=== PATIENT | female | born 1985 | race Caucasian/White ===

== ENCOUNTER 2022-01-21 07:47 | Inpatient (IN) ==
[2022-01-21] MEDS: LACTATED RINGER'S 1,000 ML IV PRN ×2 (07:48→08:50)
[2022-01-21] MEDS ORDERED: OXYTOCIN 30 UNITS/500 ML BAG IV PRN ×2 (07:51→09:59)
--- NOTE | 2022-01-21 07:55 | History & Physical Report ---
Date of Service January 21, 2022 Assessment & Plan (1) Active labor at term: Plan: admit, iv. labs. fhts categ 1. History of Present Illness Chief Complaint: contractions Primary Care Provider: Roni Whitehead, DO 36yo at 39wks ega with active labor. She called while in car with contractions that began a little before 6am this morning with history of precipitous labor with first. Delivered that baby in the care. No rom, no vb. +FM. PNC c/b 1. ama 2. h/o traumatic brain injury PNL rh pos, ri, gbs neg OBH: precip GYNH: nl paps Allergies Allergy/AdvReac Type Severity Reaction Status Date / Time No Known Allergies Allergy Verified 01/14/22 13:15 Home Medications Medication Instructions Recorded Confirmed Type prenat.vits,spencer,dfe-lprf-lrbxk 1 tab PO DAILY 06/11/21 01/14/22 History diphenhydramine HCl 25 mg tablet 25 mg PO TID PRN 01/14/22 01/14/22 History (Benadryl Allergy) Patient History Medical History (Updated 01/21/22 @ 07:55 by Myesha Rodriguez MD, FACOG) History of chicken pox Surgical History (Updated 06/11/21 @ 11:16 by Selina Spears) No history of previous surgery Family History (Updated 06/11/21 @ 11:00 by Selina Spears) Father Hypercholesteremia Denies family history of Ovarian cancer Breast cancer Colorectal cancer Social History (Updated 06/11/21 @ 11:01 by Selina Spears) Smoking Status: Never smoker Hx Alcohol Use: No marital status: marital status details: Lele Henry(33) [phone] Current Living Situation: Spouse and Family Current Living Situation Comment: lives with spouse, daughter, outside cat current occupational status: unemployed current occupation: homemaker Review of Systems as per Subjective / HPI Physical Exam Constitutional: WD/WN, vitals as above Respiratory: normal respiratory effort, lungs clear to auscultation Cardiovascular: Rate/Rhythm: regular rate and regular rhythm Gastrointestinal (Abdomen): soft gravid nt Musculoskeletal: [] edema nontender calves Neurologic: grossly normal Psychiatric: A+Ox3, euthymic affect Genitourinary: Manual OB Exam: + cervical dilation (7-8), + cervical effacement 100% and + station 0 OB Exam Monitor Tracing: + external FHT monitor used, + external uterine monitor used (not enough tracing to evaluate), + category I and + normal FHT variability Results & Data ([facility]) Vital Signs (Past 12 Hours) Vital Signs BP 01/21/22 07:51 111/76 Coding Level of Care Code None Diagnoses Active labor at term
[2022-01-21 08:29] LABS: Hematocrit (blood only) 38.3 % (37-47); Mean Corpuscular Hemoglobin 31.6 pg (25-34); Mean Corpuscular Hgb Conc 33.9 g/dL (32-36); Mean Platelet Volume 11.3 fL (7.4-10.4); Platelet Count 204 K/uL (130-400); RDW Standard Deviation 44.3 fL (36.4-46.3); Red Blood Count 4.12 M/uL (4.2-5.4); White Blood Count 7.44 K/uL (4.8-10.8)
[2022-01-21] MEDS ORDERED: fentaNYL citrate 100 MCG/2 ML VIAL ONE (08:48)
[2022-01-21] MEDS ORDERED: SODIUM CHLORIDE 0.9% INJ 10 ML VIAL ONE (08:48)
[2022-01-21] MEDS ORDERED: BUPIVACAINE 0.25% 30 ML VIAL ONE (08:48)
[2022-01-21] MEDS ORDERED: ePHEDrine sulfate 50 MG/ML AMP ONE (08:48)
[2022-01-21] MEDS ORDERED: fentaNYL 2MCG/ML ROPIVACAINE 1.25MG/ML 100 ML BAG EPI ONE (08:49)
[2022-01-21] MEDS ORDERED: LIDOCAINE 1% LOCAL 20 ML VIAL ONE (09:14)
--- NOTE | 2022-01-21 09:29 | Delivery Summary ---
Vaginal Delivery Summary Date of Service January 21, 2022 Vaginal Delivery Summary (periclitoral laceration) PREOPERATIVE DIAGNOSIS: 1. Single intrauterine at 39 weeks gestation 2. Labor 3. Advanced maternal age POSTOPERATIVE DIAGNOSIS: 1. Single intrauterine at 39 weeks gestation 2. Labor 3. Advanced maternal age 4. Delivered PROCEDURE: 1. Normal spontaneous vaginal delivery. SURGEON: Katherine Camacho MD ANESTHESIA: Local anesthesia ESTIMATED BLOOD LOSS: 300 mL FLUIDS: Continuous LR. URINE OUTPUT: None. COMPLICATIONS: None. CONDITION: Stable. INDICATIONS: 36 y/o at 39 wga presents with contractions beginning at 6am. Of note, she has history of precipitous labor and delivery in car with G1. On arrival to L&D she was found to be 7-8cm with bulging bag. Epidural was attempted however she felt desire to push prior to placement so she was re- checked and found to be 10cm. She underwent AROM and desired to push. FINDINGS: A viable female , weight pending with Apgars of 8 and 9 at 1 and 5 minutes respectively. SPECIMEN: Cord blood OPERATIVE REPORT: The patient progressed to 10 cm, 100% effaced and +2 station, pushed over intact perineum with anesthesia to deliver a viable female , weight and Apgars as above. Head of delivered in GEN position. No nuchal cord was present. Body and shoulders were delivered without difficulty. was delivered to maternal abdomen and nursing staff. Delayed cord clamping was performed for 60 seconds. Cord was clamped and cut. Cord blood was obtained. Placenta delivered spontaneously intact with 3-vessel cord. IV oxytocin and fundal massage were given for excellent hemostasis. Vagina, cervix, perineum, and placenta were inspected. A periclitoral laceration was noted and re- approximated using 4-0 vicryl after injecting local anesthesia. There was excellent hemostasis. Sponge and needle counts correct x2. No sponges were left behind. Mother and stable in immediate period. [facility] [place] Vaginal Delivery Charge Vaginal Delivery Codes: 73542 global code for the antepartum, delivery, and post- Delivery Type Details: (periclitoral laceration)
[2022-01-21] MEDS ORDERED: IBUPROFEN 600 MG TAB PO ONE (09:40)
[2022-01-21] MEDS ORDERED: bisacodyL 10 MG SUPP PR PRN (09:59)
[2022-01-21] MEDS ORDERED: DIPHTHERIA/TETANUS/PERTUSSIS 0.5 ML SYR/VIAL IM ONE (09:59)
[2022-01-21] MEDS ORDERED: BENZOCAINE 20% AER SPR 82.5 GM CAN EXT PRN (09:59)
[2022-01-21] MEDS ORDERED: HYDROCORTISONE ACETATE 25 MG SUPP PR PRN (09:59)
[2022-01-21] MEDS: ACETAMINOPHEN 325 MG TAB PO PRN (11:39)
[2022-01-21] MEDS: DOCUSATE SODIUM 100 MG CAP PO SCH (20:54)
[2022-01-21] MEDS: IBUPROFEN 600 MG TAB PO PRN (22:35)
[2022-01-22] MEDS: IBUPROFEN 600 MG TAB PO PRN ×2 (03:19→08:23)
--- NOTE | 2022-01-22 06:23 | Obstetrical Progress Note ---
Date of Service <Verito WilderDO - Last Filed: 01/22/22 06:50> January 22, 2022 Assessment & Plan <Veritoangela Hdz DO - Last Filed: 01/22/22 06:50> (1) Encounter for care and examination after delivery: 36 yo post op day1 from with elderly primigravida, doing well. -Continue routine post care. -vital signs reviewed and WNL (Tmax 36.6) -Blood Type A+, GBS-, Rubella immune -Encourage ambulation, monitor and control pain with Motrin, tylenol PRN, resume regular diet, monitor lochia -encourage breast feeding -hemoglobin 13 Day #:: 1 <Katherine Camacho MD - Last Filed: 01/22/22 07:15> (1) Encounter for care and examination after delivery: Subjective <Verito WilderDO - Last Filed: 01/22/22 06:50> Ambulation: ambulating normally Voiding: no voiding problems Passing Gas:: Yes Diet Tolerance:: regular diet Lochia:: Moderate Feeding Type:: breast feeding Current Pain Level(1-10): 1 Review of Systems Denies fever, chills, sweats Denies shortness of breath, difficulty breathing, chest pain, palpitations, chest pressure. Denies breast pain. Denies dysuria. Denies headache or changes in vision. Physical Exam <Verito HdzDO - Last Filed: 01/22/22 06:50> General: Alert, oriented. No acute distress. Cardiac: Regular rate and rhythm, no murmurs/rubs/gallops. Respiratory: Clear to auscultation bilaterally a/p, no wheezes/rales/rhonchi. No increased work of breathing. Symmetrical chest rise. No respiratory distress. Abdomen: Soft, nontender, nondistended. Bowel sounds present. Uterus: Uterine fundus firm, palpable at umbilicus. Lower Extremities: No lower extremity edema or swelling. No deep calf pain. Barbi an's negative bilaterally.. Results & Data ([facility]) <Verito WilderDO - Last Filed: 01/22/22 06:50> Vital Signs (Past 12 Hours) Vital Signs Temp Pulse Resp BP Pulse Ox 01/22/22 03:10 36.6 C 75 18 116/66 01/22/22 00:10 36.8 C 76 18 123/77 01/21/22 20:40 36.5 C 70 18 114/68 98 <Katherine Camacho MD - Last Filed: 01/22/22 07:15> Co-Signing Physician Notes Resident Physician Supervision Note: I interviewed and examined the patient. Discussed with Dr. Hdz and agree with findings and plan as documented in the note. Any exceptions or clarifications are listed here: PP1 s/p , doing well. VSS, exam benign and wnl. Stable for d/c home today Documented By: Katherine Camacho MD Resident Activity Tracking <Verito Hdz DO - Last Filed: 01/22/22 06:50> Resident Involvement: Resident Care Provided Care Provided: Adult Hospital Medicine and OB Delivery
[2022-01-22] MEDS ORDERED: PRENATAL VITAMIN 1 TAB PO SCH (08:00)
[2022-01-22] MEDS ORDERED: bisacodyL 5 MG TABEC PO ONE (08:19)
[2022-01-22] MEDS: DOCUSATE SODIUM 100 MG CAP PO SCH (08:22)
[2022-01-22] MEDS: ACETAMINOPHEN 325 MG TAB PO PRN (11:36)
[2022-01-22] MEDS ORDERED: bisacodyL 5 MG TABEC PO SCH (20:00)
== END 2022-01-22 13:30 | disposition home or self-care (01) | DRG 768 ==
LOC: OPB 07:47 → 4S1 07:50 → 4E2 13:40
DX: Z3A.39 39 weeks gestation of pregnancy; Z37.0 Single live birth; Z86.19 Personal history of other infectious and parasitic diseases; Z87.820 Personal history of traumatic brain injury; O70.0 First degree perineal laceration during delivery

== ENCOUNTER 2024-02-08 11:22 | Observation (INO) ==
--- NOTE | 2024-02-08 12:54 | Emergency Department Note ---
History of Present Illness General Chief complaint: Leg Injury/Pain Stated complaint: upper left thigh to hip pain, tingling foot Time Seen by Provider: 02/08/24 12:32 History of Present Illness Maximum Pain Intensity: 8 NAME: ROGER SCHAFFER AGE: 38 SEX: F : 1985 ARRIVES VIA: Walk-In INFORMANT: Patient ED PROVIDER(S): DANIEL Ornelas, Masood Grajeda DO The patient is a pleasant 38-year-old female who arrives to the emergency department for left leg pain that began a week ago. She reports the pain is in the lateral left hip radiating into her left groin. She reports yesterday evening the pain was worse, and she was unable to bear weight. She states that she attempted to go to sleep, and had hoped it would be better today, however it was not. She does report some tingling in the left foot. She denies any loss of bowel or bladder, or tingling in the groin. Home Medications Medication Instructions Recorded Confirmed Type norethindrone (contraceptive) 0.35 0.35 mg PO DAILY #84 tabs 04/06/23 02/08/24 Rx mg tablet omeprazole 20 mg capsule,delayed 20 mg PO DAILY #90 caps 08/21/23 02/08/24 Rx release multivitamin 1 tab PO DAILY 02/08/24 02/08/24 History risperidone 0.5 mg tablet 0.5 mg PO HS 02/08/24 02/08/24 History Allergies Allergy/AdvReac Type Severity Reaction Status Date / Time No Known Allergies Allergy Verified 02/08/24 16:10 Past Med/Surg History Medical History Active labor at term History of chicken pox Surgical History No history of previous surgery Family History Father Hypercholesteremia Denies family history of Ovarian cancer Breast cancer Colorectal cancer Social History Smoking Status: Never smoker Second Hand Exposure: No; Do You Dip or Chew Tobacco: No; Hx Alcohol Use: No Hx Substance Use: No Preferred Language: Wolof Communication Ability: Effective 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 Beliefs That Will Affect Care: None marital status: marital status details: Lele Schaffer(33) [phone] Current Living Situation: Spouse Current Living Situation Comment: lives with spouse, daughter, outside cat current occupational status: unemployed current occupation: homemaker Feels Safe at Home: Yes Assistive Devices: None Physical Exam Vital Signs Vital Signs - 24 hr 02/08/24 12:24 Temperature 36.5 C Temperature Source Temporal Artery Scan Pulse Rate 81 Respiratory Rate 18 Respiratory Effort / Characteristics Non-Labored Spontaneous Respiratory Depth Normal Blood Pressure 112/88 Blood Pressure Mean 96 Pulse Oximetry 100 Oxygen Delivery Method Room Air Sepsis Recent Fever Within 48 Hours No Sepsis New/Unexplained Change in Mental Status No Sepsis Action Taken by Nursing No Action Required VITALS: Vitals are noted on the nurse's note and reviewed by myself. Vital signs stable. GENERAL: 38-year-old female, in no acute distress, nondiaphoretic, well- developed well-nourished. SKIN: The skin was without rashes, erythema, edema, or bruising. HEAD: Normocephalic atraumatic. HEART: Regular rate and rhythm without murmurs gallops or rubs. LUNGS: Clear to auscultation bilaterally without wheezes, rales or rhonchi. No retractions or accessory muscle use. ABDOMEN: Positive bowel sounds x 4. Soft, nontender, without masses or organomegaly. Blackwell sign negative. No guarding or rebound tenderness. MUSCULOSKELETAL: Limited ROM left hip due to pain, straight leg raise positive left leg, strength 5/5, distal pulses intact. NEURO: Patient was alert and oriented to person place and time. No focal neurological deficits. Course Administered Medications Discontinued Medications Acetaminophen (Acetaminophen 500 Mg Tab) 1,000 mg PO NOW STA Stop: 02/08/24 13:09 Last Admin: 02/08/24 14:34 Dose: 1,000 mg Documented By: NRB Dexamethasone Sodium Phosphate (DexamethasonePf 10 Mg/Ml Vial) 10 mg IM NOW ONE Stop: 02/08/24 13:09 Last Admin: 02/08/24 14:35 Dose: 10 mg Documented By: NRB Ibuprofen (Ibuprofen 600 Mg Tab) 600 mg PO NOW STA Stop: 02/08/24 14:46 Last Admin: 02/08/24 15:54 Dose: 600 mg Documented By: BART Ketorolac Tromethamine (Ketorolac Tromethamine 60 Mg/2 Ml Vial) 30 mg IM NOW STA Stop: 02/08/24 13:09 Last Admin: 02/08/24 16:40 Dose: Not Given Documented By: BART Lidocaine (Lidocaine 5% 1 Patch) 1 patch TD NOW STA Stop: 02/08/24 13:09 Last Admin: 02/08/24 14:34 Dose: 1 patch Documented By: NRB Medical Decision Making Differential Diagnosis Musculoskeletal, disc herniation, fracture, metastatic disease, cord compression, discitis, sciatica, cauda equina, infection, aortic disease, renal colic, gastrointestinal, as well as other pathologies. Medical Records Attestation: I reviewed the patient's medical records. Home Medications Current Medication List: was personally reviewed by me Imaging Data Attestation: I personally reviewed and interpreted this imaging study as follows: My Impression: Initial x-ray interpretation per myself shows no acute fracture or bony abnormality. Will await formal radiology report. Radiologist's Impression: Hip/Pelvis X-Ray 02/08/24 13:08 XR hip LT 2V w pelvis CLINICAL HISTORY: Left hip pain. COMPARISON STUDY: None. FINDINGS: No fracture or dislocation within the pelvis or hips. The sacrum is intact. Soft tissues are unremarkable. No radiopaque foreign bodies. There is mild osteoarthritis within the bilateral hips and sacroiliac joints demonstrated by mild cartilage space narrowing and mild subchondral sclerosis. IMPRESSION: 1. No fracture or dislocation within the pelvis or hips. 2. 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 ACT 112: Negative or not required by law. Electronically signed by: Kyler Cornelius M.D. 02/08/2024 1:43 PM Prescription Drug Monitoring [place] Drug Monitoring Program reviewed and no issues identified MDM Narrative Patient is a pleasant 38-year-old female who arrives to the emergency department for the above-stated complaint. Upon examination the patient has significant tenderness to palpation of the left hip, and ambulatory dysfunction due to pain. X-ray imaging was obtained of the left hip and pelvis, which per my initial interpretation shows no acute bony abnormality. The patient was provided with IM dexamethasone, oral acetaminophen, and IM Toradol for pain relief. The patient did decline the IM Toradol due to concern for a painful injection. I was able to provide the patient with oral ibuprofen. Upon reevaluation the patient stated the pain had not improved to this point, and that she was unable to stand up from the chair. The patient was provided with a walker and an ambulatory trial was attempted, which was unsuccessful. The patient is concerned she will not be able to take care of her children, or go up or down the steps that are in her home due to pain. She reports she is unable to use crutches due to baseline instability from a traumatic brain injury. At this time case management was contacted for admission. Dr. Alcazar from the [facility] hospitalist group did accept the patient, and assumed care of her at this time. Please refer to Dr. Alcazar's note for further care of the patient. Impression & Plan Hx of traumatic brain injury, Lumbar radiculopathy, acute, Ambulatory dysfunction Discharge Plan Visit Data Chief Complaint: Leg Injury/Pain Stated Complaint: upper left thigh to hip pain, tingling foot ED Provider: Masood Grajeda ED Midlevel Provider: Grace Cote Discharge Problem: Hx of traumatic brain injury, Lumbar radiculopathy, acute, Ambulatory dysfunction Patient Disposition: Admitted As Inpatient Forms Stand Alone Forms: [facility], Important Visit Information Prescriptions Prescriptions: No Action norethindrone (contraceptive) 0.35 mg tablet 0.35 mg PO DAILY Qty: 84 4RF Rx Instructions: Take at the same time everyday. omeprazole 20 mg capsule,delayed release(DR/EC) 20 mg PO DAILY Qty: 90 3RF multivitamin Tablet 1 tab PO DAILY risperidone 0.5 mg tablet 0.5 mg PO HS Referrals Referrals: Roni Whitehead DO [Primary Care Provider] -
--- NOTE | 2024-02-08 13:45 | XRay Report ---
XR hip LT 2V w pelvis CLINICAL HISTORY: Left hip pain. COMPARISON STUDY: None. FINDINGS: No fracture or dislocation within the pelvis or hips. The sacrum is intact. Soft tissues ar e unremarkable. No radiopaque foreign bodies. There is mild osteoarthritis within the bilateral hips and sacroiliac joints demonstrated by mild cartilage space narrowing and mild subchondral sclerosis. IMPRESSION: 1. No fracture or dislocation within the pelvis or hips. 2. 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 ACT 112: Negative or not required by law. Electronically signed by: Kyler Cornelius M.D. 02/08/2024 1:43 PM
[2024-02-08] MEDS: ACETAMINOPHEN 500 MG TAB PO STA (14:34)
[2024-02-08] MEDS: LIDOCAINE 5% 1 PATCH TD STA (14:34)
[2024-02-08] MEDS: dexAMETHasone**PF** 10 MG/ML VIAL IM ONE (14:35)
[2024-02-08] MEDS: IBUPROFEN 600 MG TAB PO STA (15:54)
--- NOTE | 2024-02-08 16:18 | History & Physical Report ---
Date of Service February 08, 2024 Assessment & Plan (1) Lumbar radiculopathy, acute: Plan: Suspected based on history and exam Lumbar spine MRI Acetaminophen 1000mg PO TID, Naproxen 500mg PO BID, gabapentin 100mg PO TID and oxycodone 5-10mg q4h PRN for breakthrough pain (2) Hx of traumatic brain injury: Plan: 2004 - bad balance at baseline, right side weaker, short term memory loss, less patience Plan VTE Prophylaxis - low risk Diet - regular Disposition - observation to med/surg Admission and Anticipated Discharge Date Admission Date: February 08, 2024 History of Present Illness Chief Complaint: Left groin pain Primary Care Provider: Roni Whitehead DO Na Henry is a 38 year old female with prior traumatic brain injury who presents to the ER with 1 weeks of significantly progressively worse left groin pain and numbness radiating down her left leg to her foot. No trauma. Pain is very movement orientated when trying to stand or lie down 7-8/10, worse in the evenings. No back pain but pain is in groin and occasional upper thigh. Pain is so intense she is now having to crawl around her house and unable to take care of her two young children. Numbness intermittently radiating down the front of her leg to her foot with occasionally her foot falling asleep but no pain radiation. No change in urine, bowels or perianal numbness. At baseline she had a traumatic brain injury with poor balance, right side weaker, short term memory loss, less patience - these symptoms are not acutely worse. Allergies Allergy/AdvReac Type Severity Reaction Status Date / Time No Known Allergies Allergy Verified 02/08/24 16:10 Home Medications Medication Instructions Recorded Confirmed Type norethindrone (contraceptive) 0.35 0.35 mg PO DAILY #84 tabs 04/06/23 02/08/24 Rx mg tablet omeprazole 20 mg capsule,delayed 20 mg PO DAILY #90 caps 08/21/23 02/08/24 Rx release multivitamin 1 tab PO DAILY 02/08/24 02/08/24 History risperidone 0.5 mg tablet 0.5 mg PO HS 02/08/24 02/08/24 History Past Med/Surg History Medical History Active labor at term History of chicken pox Surgical History No history of previous surgery Family History Father Hypercholesteremia Denies family history of Ovarian cancer Breast cancer Colorectal cancer Social History Smoking Status: Never smoker Second Hand Exposure: No; Do You Dip or Chew Tobacco: No; Hx Alcohol Use: No Hx Substance Use: No Preferred Language: Croatian Communication Ability: Effective 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 Beliefs That Will Affect Care: None marital status: marital status details: Lele Henry(33) [phone] Current Living Situation: Spouse Current Living Situation Comment: lives with spouse, daughter, outside cat current occupational status: unemployed current occupation: homemaker Other Information That Helps Us Care for You: No Feels Safe at Home: Yes Safety Concerns: Feels Safe At This Time Assistive Devices: None Review of Systems Review of Systems: All systems reviewed & are unremarkable except as noted in HPI & below Physical Exam Constitutional: WD/WN, vitals as above Respiratory: normal respiratory effort, lungs clear to auscultation Cardiovascular: RRR, no murmur, no edema Gastrointestinal (Abdomen): normal bowel sounds, soft, nontender, no hepatosplenomegaly Musculoskeletal: no cyanosis or clubbing, extremities motor strength 5/5 No left sided foot drop No pain on hip int/ext rotation or lateral hip palpation Neurologic: moves all extremities and awake; no focal motor deficits and not confused Motor/Sensory: no sensory deficit Psychiatric: A+Ox3, euthymic affect Results & Data Results & Data Vital Signs (Past 12 Hours) Vital Signs Temp Pulse Resp BP Pulse Ox O2 Del Method 02/08/24 12:24 36.5 C 81 18 112/88 100 Room Air Laboratory Results Abnormal lab results 02/08/24 Range/Units Unknown WBC 14.85 H (4.8-10.8) K/ul Neut # (Auto) 13.50 H (1.40-6.50) K/uL Lymph # (Auto) 1.09 L (1.20-3.40) K/uL Glucose 107 H (70-99(Fasting)) mg/dl Albumin 5.2 H (3.4-5.0) gm/dl Diagnostic Findings XR hip LT 2V w pelvis CLINICAL HISTORY: Left hip pain. COMPARISON STUDY: None. FINDINGS: No fracture or dislocation within the pelvis or hips. The sacrum is intact. Soft tissues are unremarkable. No radiopaque foreign bodies. There is mild osteoarthritis within the bilateral hips and sacroiliac joints demonstrated by mild cartilage space narrowing and mild subchondral sclerosis. IMPRESSION: 1. No fracture or dislocation within the pelvis or hips. 2. 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 Medications Administered ER Medications Given: Toradol 30mg IM Dexamethasone 10mg IM Lidocaine patch Acetaminophen 1000mg PO Ibuprofen 600mg PO Code Status & VTE Plan Code Status Full PG Care Time/CCT Total # of Minutes Spent Total Time Spent with Patient: Total time spent is greater than 50% in coordination of care (as documented) at patient's floor/unit and/or counseling patient: Coding Level of Care Code 55238 INT INP/OBS CARE 2/55MIN Diagnoses Lumbar radiculopathy, acute M54.16 Hx of traumatic brain injury Z87.820
[2024-02-08] MEDS: KETOROLAC TROMETHAMINE 60 MG/2 ML VIAL IM STA (16:40)
[2024-02-08 18:03] LABS: Hematocrit (blood only) 45.3 % (37.0-47.0); Hemoglobin 14.9 g/dl (12.0-16.0); Mean Corpuscular Hemoglobin 29.6 pg (25.0-34.0); Mean Corpuscular Hgb Conc 32.9 g/dL (32.0-36.0); Mean Corpuscular Volume 90.1 fL (80.0-100.0); Mean Platelet Volume 9.8 fL (9.4-12.4); Platelet Count 314 K/uL (130-400); RDW Coefficient of Variation 12.6 % (11.5-14.5); RDW Standard Deviation 41.7 fL (36.4-46.3); Red Blood Count 5.03 M/uL (4.20-5.40); White Blood Count 14.85 K/ul (4.8-10.8)
[2024-02-08 18:28] LABS: Basophils # (auto) 0.07 K/uL (0.00-0.20); Basophils % (auto) 0.5 %; Eosinophils # (auto) 0.02 K/uL (0.00-0.50); Eosinophils % (auto) 0.1 %; Immature Granulocytes # (auto) 0.06 K/uL (0.01-0.20); Immature Granulocytes % (auto) 0.4 %; Lymphocytes # (auto) 1.09 K/uL (1.20-3.40); Lymphocytes % (auto) 7.3 %; Monocytes # (auto) 0.11 K/uL (0.11-0.59); Monocytes % (auto) 0.7 %; RBC Morphology Unremarkable
[2024-02-08 18:34] LABS: Alanine Aminotransferase 13 U/L (7-52); Albumin Globulin Ratio 1.7 (0.9-2); Albumin Level 5.2 gm/dl (3.4-5.0); Alkaline Phosphatase 55 U/L (34-104); Anion Gap 7 (3-11); Aspartate Aminotransferase 13 U/L (13-39); BUN Creatinine Ratio 17.9 (10-20); Bilirubin,Total 0.8 mg/dl (0.2-1.0); Blood Urea Nitrogen 14 mg/dl (6-23); C Reactive Protein < 0.50 mg/dl (0-0.5); Carbon Dioxide 25 mmol/L (21-32); Chloride 104 mmol/L (98-107); Est GFR (African American) 111.8 ml/min; Est GFR (Non-African American) 96.4 ml/min; Globulin 3.1 gm/dl (2.5-4.0); Glucose 107 mg/dl (70-99(Fasting)); Potassium 4.2 mmol/L (3.5-5.1); Sodium 136 mmol/L (136-145); Total Protein 8.3 gm/dl (6.0-8.3)
--- NOTE | 2024-02-08 18:42 | Magnetic Resonance Report ---
LUMBAR SPINE MRI HISTORY: Left sided L1-L4 radiculopathy pain TECHNIQUE: Multiplanar multisequence MRI of the lumbar spine was performed without the use of contras t. COMPARISON: None. FINDINGS: For the purpose of the report the L5-S1 disc space will be located on axial image 23 of 26. No fracture or subluxation within the lumbar spine. The visualized sacrum is intact. The conus termin ates at the L1-L2 disc space level. This spaces are preserved. Paravertebral soft tissues are unremar kable. Mild facet degenerative changes at L4-L5 and L5-S1. No disc herniations. L1-L2: No significant central canal or neural foraminal narrowing. L2-L3: No significant central canal or neural foraminal narrowing. L3-L4: No significant central canal or neural foraminal narrowing. L4-L5: No significant central canal or neural foraminal narrowing. L5-S1: No significant central canal or neural foraminal narrowing. IMPRESSION: 1. No fracture or subluxation within the lumbar spine. 2. No disc herniations. No significant central canal or neural foraminal narrowing. ACT 112: Negative or not required by law. Electronically signed by: Kyler Cornelius M.D. 02/08/2024 6:39 PM
[2024-02-08] MEDS ORDERED: oxyCODONE HCL IR 5 MG TAB (IMMEDIATE RELEASE) PO PRN ×2 (18:48)
[2024-02-08] MEDS ORDERED: MoRPHine SULFATE 2 MG/ML CARP IV PRN (18:48)
[2024-02-08] MEDS ORDERED: MoRPHine SULFATE 4 MG/ML 1 ML CARP\\VIAL IV PRN (18:48)
[2024-02-08] MEDS ORDERED: dexAMETHasone 4 MG in SYRINGE 0 ML IV SCH (19:00)
[2024-02-08] MEDS ORDERED: DEXAMETHASONE SOD INJ 4 MG/ML VIAL IV SCH ×2 (20:00)
[2024-02-08] MEDS: risperiDONE 0.5 MG TABLET PO SCH (20:44)
[2024-02-08] MEDS: GABAPENTIN 100 MG CAP PO SCH (20:44)
[2024-02-08] MEDS: NAPROXEN 250 MG TAB PO SCH (20:45)
[2024-02-08] MEDS: ACETAMINOPHEN 500 MG TAB PO SCH (20:46)
[2024-02-08] MEDS: dexAMETHasone 4 MG in SYRINGE 0 ML IV SCH (21:24)
[2024-02-09] MEDS: PANTOprazole 40 MG TAB PO SCH (08:05)
--- NOTE | 2024-02-09 18:05 | Discharge Summary ---
Date of Service February 09, 2024 Admission HPI Per Admitting Provider Na Henry is a 38 year old female with prior traumatic brain injury who presents to the ER with 1 weeks of significantly progressively worse left groin pain and numbness radiating down her left leg to her foot. No trauma. Pain is very movement orientated when trying to stand or lie down 7-8/10, worse in the evenings. No back pain but pain is in groin and occasional upper thigh. Pain is so intense she is now having to crawl around her house and unable to take care of her two young children. Numbness intermittently radiating down the front of her leg to her foot with occasionally her foot falling asleep but no pain radiation. No change in urine, bowels or perianal numbness. At baseline she had a traumatic brain injury with poor balance, right side weaker, short term memory loss, less patience - these symptoms are not acutely worse. Principal Diagnosis Left anterior thigh pain - likely meralgia paresthetica. Discharge Exam PHYSICAL EXAMINATION Last 24h vital signs reviewed, see documentation in flowsheet General: comfortable appearing, no distress, sitting up in bed HEENT: Normocephalic, atraumatic, pupils round and equal, sclerae anicteric, no conjunctival injection, moist mucus membranes Lungs: Normal respiratory effort. Heart: def Abdomen: Soft, nontender, nondistended. Extremities: Warm, dry, well-perfused. No extremity edema. no tenderness in L groin or over trochanteric bursa, no hernia. Tolerates ROM at hip and knee without pain. sensation intact to LT on LLE. Neuro: Alert and oriented x 4, slow speech pattern but normal content, normal mentation, face symmetric, moves 4 extremities well Psych: Normal affect and behavior Discharge Data Allergies Allergy/AdvReac Type Severity Reaction Status Date / Time No Known Allergies Allergy Verified 02/08/24 16:10 Consultations 02/08/24 16:10 ED Decision to Admit Stat Ordered Studies 02/08/24 16:39 MRI Lumbar Spine [MR lumbar spine wo con] Urgent Hip/Pelvis X-Ray 02/08/24 13:08 XR hip LT 2V w pelvis CLINICAL HISTORY: Left hip pain. COMPARISON STUDY: None. FINDINGS: No fracture or dislocation within the pelvis or hips. The sacrum is intact. Soft tissues are unremarkable. No radiopaque foreign bodies. There is mild osteoarthritis within the bilateral hips and sacroiliac joints demonstrated by mild cartilage space narrowing and mild subchondral sclerosis. IMPRESSION: 1. No fracture or dislocation within the pelvis or hips. 2. 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 ACT 112: Negative or not required by law. Electronically signed by: Kyler Cornelius M.D. 02/08/2024 1:43 PM Lumbar Spine MRI 02/08/24 16:39 LUMBAR SPINE MRI HISTORY: Left sided L1-L4 radiculopathy pain TECHNIQUE: Multiplanar multisequence MRI of the lumbar spine was performed without the use of contrast. COMPARISON: None. FINDINGS: For the purpose of the report the L5-S1 disc space will be located on axial image 23 of 26. No fracture or subluxation within the lumbar spine. The visualized sacrum is intact. The conus terminates at the L1-L2 disc space level. This spaces are preserved. Paravertebral soft tissues are unremarkable. Mild facet degenerative changes at L4-L5 and L5-S1. No disc herniations. L1-L2: No significant central canal or neural foraminal narrowing. L2-L3: No significant central canal or neural foraminal narrowing. L3-L4: No significant central canal or neural foraminal narrowing. L4-L5: No significant central canal or neural foraminal narrowing. L5-S1: No significant central canal or neural foraminal narrowing. IMPRESSION: 1. No fracture or subluxation within the lumbar spine. 2. No disc herniations. No significant central canal or neural foraminal narrowing. ACT 112: Negative or not required by law. Electronically signed by: Kyler Cornelius M.D. 02/08/2024 6:39 PM Hospital Course (1) Left leg pain: 38 y/o admitted with severe, intractable LLE pain. Started around three weeks ago but was extremely severe since yesterday. No injury. No fevers/chills. Has baseline R sided weakness from remote TBI but typical activity is caring for two small children, walking, elliptical. No increase/change in exercise pattern. No low back pain. Pain is in L mid groin radiating down anterior thigh toward the knee. She also has some numbness sensation L anterior lewis and dorsum of foot. No pain in buttock or posterior leg. Treated with IV steroids, IV toradol overnight and MRI of lumbar spine was normal Distribution of pain most consistent with meralgia paresthetica - only thing that does not completely fit is numbness/dysesthesia lewis and foot. Also possible is radicular pain from L4/5 however that should cause pain in buttock/lateral thigh/lewis/foot rather than groin and anterior thigh Regardless, treatment is the same. Pain almost completely resolved overnight -medrol dosepack -gabapentin 100 mg bid to tid -APAP consistent next 2-3 days. avoid too many NSAIDs until off of steroids -outpatient PT -rest this week and avoid tight clothing, avoid too much flexion of hip while sitting -primary care follow up (2) Hx of traumatic brain injury: 2004 - bad balance at baseline, right side weaker, short term memory loss, less patience (3) Ambulatory dysfunction: Plan Leukocytosis - reviewed timing and IV steroids were given in ED a few hours prior to CBC being drawn, therefore, related to steroid effect. Afebrile this admission. No infectious signs or sx. Total Time Total Time Spent Total Time Spent (In Minutes): I personally spent: 35 minutes today on clinical care activities including: reviewing chart notes and vital signs reviewing labs reviewing studies examining and counseling the patient writing orders, prescriptions, discharge medications documentation Discharge Plan Discharge Items Patient Disposition: Home - Self-Care Reason For Visit: LEFT SIDED LUMBAR RADICULOPATHY Discharge Diagnosis: Left leg pain, likely meralgia paresthetica Activity: Per Instructions section Weightbearing: Full weightbearing Non-emergency contact: Primary Care Provider Call non-emergency contact if: you have any medication questions, your symptoms worsen and you have a fever Follow-up/Referrals: Roni Whitehead DO [Primary Care Provider] - 02/16/24 10:30 am Diet: Regular Addtl Attending Provider Instructions: Flare of left groin / leg pain that improved with anti-inflammatories (steroids and naproxen) This is probably a condition called "meralgia paresthetica" - the femoral nerve being compressed/inflamed where it crosses from the groin to thigh area Its also possible that its an irritated L4/L5 spinal nerve root, but that doesn't usually cause groin pain Fortunately lumbar spine MRI was very normal WBC was elevated because of steroids given in the ER, prior to your blood being drawn -the treatment is the same - avoid compression / tight clothes in the lower abdomen and thigh (underwear, pants). Try to recline a bit when sitting if possible -course of steroids (medrol dose pack) to reduce inflammation -gabapentin 100 mg two or three times a day to help with nerve pain -acetaminophen as directed to help with pain - recommend taking around the clock for 2 or 3 days -once the steroid course is completed it is OK to take naproxen/aleve as needed for pain -rest: ok to keep walking but avoid elliptical or lots of exercise for about a week -follow up in primary care in 1-2 weeks - if pain is still bothering you, you may be referred to physical therapy as an outpatient Pending Studies at Discharge: No Stand-Alone Forms: [facility] Smoking Cessation Medications and DC Order Prescriptions: New acetaminophen [Tylenol Extra Strength] 500 mg Tablet 1,000 mg PO TID Qty: 0 0RF methylprednisolone 4 mg tablets,dose pack 4 mg PO DAILY Qty: 21 0RF Rx Instructions: dosepack - use as directed gabapentin 100 mg capsule 100 mg PO TID Qty: 42 0RF Continued norethindrone (contraceptive) 0.35 mg tablet 0.35 mg PO DAILY Qty: 84 4RF Rx Instructions: Take at the same time everyday. omeprazole 20 mg capsule,delayed release(DR/EC) 20 mg PO DAILY Qty: 90 3RF multivitamin Tablet 1 tab PO DAILY risperidone 0.5 mg tablet 0.5 mg PO HS Discharge Orders: Discharge Order (Routine); Ordered 02/09/24 Ordered By: Maria A Chaidez Admission Data Admit Date/Time: 02/08/24 16:45 Attending Provider: Maria A Chaidez Admit Provider: Lele Alcazar Primary Care Provider: Roni Whitehead Other Providers: Lele Alcazar Other Interventions: Discharge Summary Assessment (RN) Last Done: 02/09/24 09:34 Coding Level of Care Code 16215 INP/OBS DISCH >30 MIN Diagnoses Left leg pain M79.605 Hx of traumatic brain injury Z87.820 Ambulatory dysfunction R26.2
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
--- OUTSIDE RECORDS SUMMARY | 2024-02-10 17:44 | External Medical Summary | Summary of Care ---
Author Name Unknown Organization [facility] Address [address] [place] [address] Phone [phone] Care Team Providers Care Head Refrigerating Engineer Name Role Phone Unavailable Primary Care Provider Unavailabl e Reason for Visit * Reason Comments Follow Up Encounter Details Date Type Department Care Team (Late st Contact Info) Description 01/31/2024 12:30 PM EDT Telemedicine [facility], [place] [address], [place] [id number] Yara Wade LCSW [address], [place] [phone] Major depressive disorder, recurrent episode, moderate (HCC)* Allergies Active Allergy Reactions Criticality Noted Date Comments Lamotrigine Rash Medium 01/24/2024 documented as of this encounter (statuses as of 02/05/2024) Medications No known medicationsdocumented as of this encounter (statuses as of 02/05/2024) Active Problems Problem Noted Date Diagnosed Date Major depressive disorder, recurrent episode, mo derate 12/04/2023 documented as of this encounter (statuses as of 02/05/2024) Social History Tobacco Use Types Packs/Day Years [...] this encounter Progress Notes * Yara Wade, CELLULAR BIOLOGIST - 01/31/2024 12:32 PM EDT Patient location: HOME. I was not in a hospital or clinic location. After connecting through [employer], patient was verified with two unique identifiers. Patient (or authorized legal community representative) was then informed that this was [...] that I have reviewed their record in [employer] and presented the opportunity for them to ask any questions regarding the visit today. The patient agreed to participate. Provider reviewed elements of Outpatient Services Description including limits of confidentiality, how to contact the department, risks and benefits of treatment and consent for treatment. Start Time: 12:45 pm Stop Time: 1:20 pm Total direct [id number] time: 35 min. ADULT THERAPY PROGRESS NOTE Psychology, [address] [address] 01/31/24 TYPE OF VISIT: Individual DIAGNOSIS: Major Depressive Disorder, recurrent, moderate REASON FOR FOLLOW-UP: Individual therapy Session #: 7 SESSION FOCUS: Emotional regulation SESSION SUMMARY/NOTES: Pt reported that it went OK with relative's visiting for Carley's birthday.She hasn't had many incidents of frustration and crying since the prior meeting. She believes that the Lamictal is helping. There have been no incidents of self harm (hitting herself) since the priorsession. We talked about writing down both challenging and positive interactions for discussion at the next session. PROGRESS TOWARDS GOALS: Pt is demonstrating progress in emotional regulation and conveys insight concerning her symptoms. Objective Measures: Stephen Suicide Severity Rating Scale Results 01/31/2024 10:26 [place] SUICIDE SEVERITY RATING SCALE (C-SSRS) Have [...] LCSW Division of Psychiatry & Behavioral Medicine [facility] [phone] documented in this encounter Plan of Treatment Upcoming Encounters Date Type Department Care Team (Late st Contact Info) Description 02/15/2024 12:30 PM EDT Telemedicine Psychology, [place] [address], [place] [phone] Yara Wade LCSW [address], [place] [phone] 03/12/2024 8:00 AM EDT Telemedicine Psychiatry, [place] [address], [place] [id number] Phuong Manzanares CRNP [address] [place] [address] Health Maintenance Due Date Last Done Comments [...]
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
--- OUTSIDE RECORDS SUMMARY | 2024-02-10 17:44 | External Medical Summary | Summary of Care ---
Author Name Unknown Organization [facility] Address [address] [place] [address] Phone [phone] Care Team Providers Care Alcohol Rubber Name Role Phone Unavailable Primary Care Provider Unavailabl e Reason for Visit * Reason Onset Date Comments Medication Problem 01/22/2024 Encounter Details Date Type Department Care Team (Late st Contact Info) Description 01/22/2024 Telephone Psychiatry, [place] [address], [place] [phone] Services, [facility] [address] [place] [address] Medication Problem Allergies Active Allergy Reactions Criticality Noted Date Comments Lamotrigine Rash Medium 01/24/2024 documented as of this encounter (statuses as of 01/24/2024) Medications Medication Sig Dispensed Refills Start Date End Date Status lamoTRIgine 25 MG Oral Tablet (LaMICtal) Take 1 Tablet by mouth in the morning. Step One. Take for two weeks.. 14 Tablet 0 01/15/2024 01/24/2024 Discontinued lamoTRIgine 25 MG Oral Tablet (LaMICtal) Take 2 Tablets by mouth in the morning. Step Two. 30 Tablet 2 01/15/2024 01/24/2024 Discontinued documented as of this encounter (statuses as of 01/24/2024) Active Problems Problem Noted Date Diagnosed Date Major depressive disorder, recurrent episode, mo derate 12/04/2023 documented as of this encounter (statuses as of 01/24/2024) Social History Tobacco Use Types Packs/Day Years [...] PM EST documented as of this encounter Miscellaneous Notes * Telephone Encounter - Phuong Manzanares CRNP - 01/24/2024 3:51 PM EDT Spoke with patient who states that she d/c Lamictal after rash appeared. States that rash has dissipated. Discussed with patient risks related to SJS and that she was correct to stop med. Patient's reaction added to allergic reactions. * Telephone Encounter - Yuriy Kaiser OSA - 01/22/2024 10:15 AM EDT Patient is calling in regard to medication Lamtrigine 25 mg., patient has been taking the medication since 01/17/24 she has not taken mediation 01/20/24, 01/21/24, or today 01/22/24 due to having side effects. On Monday01/19/24 patient took medication and above her belly button across her stomach there was a light red rash that concerned her that was not there prior to starting medication.She stated provider notified her of some of these symptoms that could occur from medication. Patient stated that when she first noticed it there was no itching however, as the day went on she was itching up her stomach, back, and neck but only saw a visible rash on her stomach. Patient stated the rash was visible for a few hours. She stated she took the medication at around 830 am and took a shower around 1 pm which is when she noticed the rash. Patient would like to discuss next steps if she should continue medication or switch to something different. Upon looking at schedules to offer patient an appt. To discuss the first available is 02/08/24. Patient is scheduled for a return for 02/14/24. She is requesting a call to discuss, contact information up to date on patient chart. documented in this encounter Plan of Treatment Upcoming Encounters Date Type Department Care Team (Late st Contact Info) Description 01/31/2024 12:30 PM EDT Telemedicine Psychology, [place] [address], [place] [phone] Yara Wade LCSW [address], [place] [phone] 02/14/2024 12:30 PM EDT Telemedicine Psychiatry, [place] [address], [place] [phone] Phuong Manzanares CRNP [address] [place] [id number] Health Maintenance Due Date Last Done Comments [...]
== END 2024-02-09 13:21 | disposition home or self-care (01) ==
LOC: 3W 11:22 → ED 11:22 → SUATTDRO 16:45 → 3W 18:02